=== PATIENT | male | born 1985 | race Caucasian/White ===

== ENCOUNTER 2021-04-11 12:58 | Emergency (ER) | payer OTHER ==
[~2021-04-11] VITALS: Ht 182.9 cm; Wt 113.4 kg
[2021-04-11] MEDS ORDERED: AMOCLA875 PO (14:36)
[2021-04-11] MEDS ORDERED: Norco 5-325 Ta1 EACH PO (14:36)
== END 2021-04-11 14:55 | disposition home or self-care (01) ==
LOC: ER 12:58
DX: K04.7 Periapical abscess without sinus (principal); K02.9 Dental caries, unspecified; F17.200 Nicotine dependence, unspecified, uncomplicated
CPT/HCPCS: 64450; 99282-25; A9270

== ENCOUNTER 2021-06-02 15:01 | Emergency (ER) | payer OTHER ==
[~2021-06-02] VITALS: Ht 182.9 cm; Wt 127.0 kg
[~2021-06-02 15:01] MED LIST: AMOCLA875 PO; Norco 5-325 Ta1 EACH PO
[2021-06-02] MEDS ORDERED: Norco 5-325 Ta1 EACH PO (16:28)
== END 2021-06-02 16:39 | disposition home or self-care (01) ==
LOC: ER 15:01
DX: S20.212A Contusion of left front wall of thorax, initial encounter (principal); V89.2XXA Person injured in unspecified motor-vehicle accident, traffic, initial encounter
CPT/HCPCS: 71046; 99283-25

== ENCOUNTER 2022-02-05 15:05 | Emergency (ER) | payer OTHER ==
[~2022-02-05] VITALS: Ht 182.9 cm; Wt 117.5 kg
[2022-02-05] MEDS ORDERED: Percocet 5-3251 EACH PO (15:20)
== END 2022-02-05 15:23 | disposition home or self-care (01) ==
LOC: ER 15:05
DX: K08.89 Other specified disorders of teeth and supporting structures (principal); F17.200 Nicotine dependence, unspecified, uncomplicated
CPT/HCPCS: 99282

== ENCOUNTER 2022-02-23 16:20 | Emergency (ER) | payer OTHER ==
[~2022-02-23] VITALS: Ht 182.9 cm; Wt 117.5 kg
[~2022-02-23 16:20] MED LIST changes: +Percocet 5-3251 EACH PO
[2022-02-23] MEDS ORDERED: Cleocin HCl300 MG PO (16:26)
[2022-02-23] MEDS ORDERED: Percocet 5-3251 EACH PO (16:26)
== END 2022-02-23 16:28 | disposition home or self-care (01) ==
LOC: ER 16:20
DX: K04.7 Periapical abscess without sinus (principal); F17.200 Nicotine dependence, unspecified, uncomplicated
CPT/HCPCS: 99282

== ENCOUNTER 2022-11-10 21:21 | Emergency (ER) | payer OTHER ==
[~2022-11-10] VITALS: Ht 182.9 cm; Wt 130.6 kg
[~2022-11-10 21:21] MED LIST changes: +Cleocin HCl300 MG PO
[2022-11-10 21:53] VITALS: BP 162/106
[2022-11-10] MEDS ORDERED: AMOCLA875 PO (23:38)
[2022-11-14] MEDS ORDERED: Naprosyn500 MG PO (21:10)
[2022-11-14] MEDS ORDERED: Cleocin HCl150 MG PO (21:10)
== END 2022-11-10 23:52 | disposition home or self-care (01) ==
LOC: ER 21:21
DX: K04.7 Periapical abscess without sinus (principal); Z88.0 Allergy status to penicillin; Z79.899 Other long term (current) drug therapy; E11.9 Type 2 diabetes mellitus without complications
CPT/HCPCS: 96372; 99282; A9270; J1885

== ENCOUNTER 2022-12-03 12:07 | Emergency (ER) | payer OTHER ==
[~2022-12-03] VITALS: Ht 182.9 cm; Wt 130.6 kg
[~2022-12-03 12:07] MED LIST changes: +Cleocin HCl150 MG PO; +Naprosyn500 MG PO
[2022-12-03 12:45] LABS: U Amphetamine Screen Not Detected; U Barbituate Screen Not Detected; U Benzodiazapine Screen Not Detected; U Buprenorphine Screen Not Detected; U Cannabinoids Screen Not Detected; U Cocaine Screen Not Detected; U Methadone Screen Not Detected; U Methamphetamine Screen Not Detected; U Opiates Screen Not Detected; U Oxycodone Screen Not Detected; U Phencyclidine Screen Not Detected; U Propoxyphene Screen Not Detected
[2022-12-03] MEDS ORDERED: NARCAN4 M1 (16:20)
[2022-12-03] MEDS ORDERED: SUBOXONE 8 MG-1 EACH SL (16:20)
[2022-12-03 16:53] VITALS: BP 132/80
== END 2022-12-03 16:56 | disposition home or self-care (01) ==
LOC: ER 12:07
PROVIDERS: Student in an Organized Health Care Education/Training Program
DX: F11.13 Opioid abuse with withdrawal (principal); E11.9 Type 2 diabetes mellitus without complications; F17.290 Nicotine dependence, other tobacco product, uncomplicated
CPT/HCPCS: 99284; A9270

== ENCOUNTER → 2023-07-12 | Outpatient (CLI) | payer OTHER ==
[~2023-07-12] MED LIST changes: +NARCAN4 M1; +SUBOXONE 8 MG-1 EACH SL
[2023-07-12 14:31] LABS: BASOPHILS ABSOLUTE AUTO 0.02 K/mm3 (0.00-0.23); BASOPHILS PERCENT AUTO 0 % (0-2); EOSINOPHILS ABSOLUTE AUTO 0.06 K/mm3 (0.00-0.68); EOSINOPHILS PERCENT AUTO 1 % (0-6); Hematocrit 43.9 % (37.0-53.0); Hemoglobin 14.7 g/dL (13.5-17.5); IMMATURE GRAN ABSOLUTE AUTO 0.01 K/mm3 (0.00-0.10); IMMATURE GRAN PERCENT AUTO 0 % (0-1); LYMPHOCYTES ABSOLUTE AUTO 2.47 K/mm3 (0.84-5.20); LYMPHOCYTES PERCENT AUTO 35 % (21-46); MONOCYTES ABSOLUTE AUTO 0.43 K/mm3 (0.16-1.47); MONOCYTES PERCENT AUTO 6 % (4-13); Mean Corpuscular HGB 26.1 pg (26.0-34.0); Mean Corpuscular HGB Conc 33.5 g/dL (31.5-36.5); Mean Corpuscular Volume 78 fL (80-100); NEUTROPHILS ABSOLUTE AUTO 4.08 K/mm3 (1.96-9.15); NEUTROPHILS PERCENT AUTO 58 % (41-73); Platelet Count 278 K/mm3 (150-400); RDW Coefficient Variation 13.7 % (11.7-14.2); RDW Standard Deviation 38.2 fL (35.1-46.3); Red Blood Cell Count 5.63 M/mm3 (4.30-5.90); White Blood Cell Count 7.07 K/mm3 (4.00-11.30)
[2023-07-12 14:43] LABS: Albumin/Globulin Ratio 0.8 (0.8-1.8); Bilirubin, Total 0.5 mg/dL (0.1-1.0); Bun/Creatinine Ratio 10.6 (12.0-20.0); Calcium, Blood 8.6 mg/dL (8.5-10.1); Creatinine, Blood 0.85 mg/dL (0.60-1.20); Globulin, Blood 3.6 g/dL (2.2-4.0); Potassium, Blood 3.9 mmol/L (3.5-5.5); Total Protein, Blood 6.6 g/dL (6.4-8.2)
== END ==
LOC: LAB 14:23 → LAB SHORT 14:23
PROVIDERS: Physician Assistant
DX: R07.89 Other chest pain (principal)
CPT/HCPCS: 80053; 83690; 84484; 85025

== ENCOUNTER 2024-07-05 07:07 | Emergency (ER) | payer OTHER ==
[~2024-07-05] VITALS: Ht 182.9 cm; Wt 120.2 kg
[2024-07-05 07:21] VITALS: BP 143/100
[2024-07-05] MEDS ORDERED: METH40 PO (07:25)
[2024-07-05] MEDS ORDERED: Vitamin D1000 UNI1 (07:26)
[2024-07-05] MEDS ORDERED: STEGLATRO5 MG (07:26)
[2024-07-05] MEDS ORDERED: TRAZ100 (07:26)
[2024-07-05] MEDS ORDERED: METF500 (07:26)
[2024-07-05] MEDS ORDERED: CITALOPRAM HBR10 MG (07:26)
[2024-07-05] MEDS ORDERED: Methadone HCL 10 MG TAB PO ONE (08:40)
== END 2024-07-05 09:13 | disposition home or self-care (01) ==
LOC: ER 07:07
DX: F11.90 Opioid use, unspecified, uncomplicated (principal); E11.9 Type 2 diabetes mellitus without complications; Z76.0 Encounter for issue of repeat prescription; Z79.84 Long term (current) use of oral hypoglycemic drugs; Z79.899 Other long term (current) drug therapy; Z88.0 Allergy status to penicillin
CPT/HCPCS: 99281; A9270